=== PATIENT | female | born 1945 | race Caucasian/White ===

== ENCOUNTER 2017-06-26 19:59 | Emergency (ER) | payer MEDICAID, OTHER ==
[~2017-06-26] VITALS: Ht 180.3 cm; Wt 85.7 kg
[2017-06-26] MEDS ORDERED: SODIUM CHLORIDE 0.9% 1,000 ML IVB ONE (20:16)
[2017-06-26] MEDS ORDERED: NALBUPHINE HCL 10 MG/1ml INJECTION IV ONE ×2 (21:00→23:45)
[2017-06-26] MEDS ORDERED: ONDANSETRON HCL 4 MG/2 ML VIAL IV ONE (21:00)
[2017-06-26 21:18] LABS: Basophils # (auto) 0.1 uL; Basophils % (auto) 0.6 % (0.0-2.0); Eosinophils # (auto) 1.1 uL; Eosinophils % (auto) 6.8 % (0.0-7.0); Hematocrit 38.8 % (36.0-46.0); Hemoglobin 12.8 g/dL (12.2-16.2); Lymphocytes # (auto) 1.3 uL; Mean Corpuscular Hemoglobin 29.3 pg (28.0-32.0); Mean Corpuscular Hgb Conc. 32.9 g/dL (32.0-36.0); Monocytes # (auto) 1.4 uL; Monocytes % (auto) 8.9 % (0.0-12.0); Neutrophils # (auto) 12.1 uL; Neutrophils % (auto) 75.7 % (37.0-80.0); Platelet Count (auto) 314 10^3/uL (140-450); Red Blood Cells 4.36 10^6/uL (4.0-5.20); Red Cell Distribution Width 14.3 % (11.8-14.3); White Blood Cell 15.9 10^3/uL (4.4-10.8)
[2017-06-26 21:30] LABS: INR 0.99 (0.9-1.15); Partial Thromboplastin Time 24.5 sec (22.64-33.71); Prothrombin Time 10.8 sec (9.37-12.3)
[2017-06-26 21:35] LABS: Potassium 3.8 mmol/L (3.5-5.1)
[2017-06-26 21:36] LABS: BUN/Creatinine Ratio 16.1
[2017-06-26 21:37] LABS: Albumin 3.4 g/dL (3.4-5.0); Bilirubin, Total 0.5 mg/dL (0.2-1.0); Calcium 9.3 mg/dL (8.5-10.1); Total Protein 8.3 g/dL (6.4-8.2)
[2017-06-27] MEDS ORDERED: NALBUPHINE HCL 10 MG/1ml INJECTION IV ONE ×2 (03:15→04:30)
[2017-06-27] MEDS ORDERED: ONDANSETRON HCL 4 MG/2 ML VIAL IV ONE (03:15)
[2017-06-27 05:07] VITALS: BP 126/85
[2017-06-27 05:44] LABS: Urine Bacteria NONE SEEN /hpf (None Seen); Urine Blood Negative /uL (Negative); Urine Hyaline Cast FEW /lpf (0 - 2); Urine Mucus FEW (None Seen); Urine Specific Gravity 1.018 (1.001-1.035); Urine WBC 2 /hpf (0 - 5)
== END 2017-06-27 05:26 | disposition home or self-care (01) ==
LOC: EDBD 19:59 → ER 19:59
DX: S72.001A Fracture of unspecified part of neck of right femur, initial encounter for closed fracture (principal); I11.0 Hypertensive heart disease with heart failure; I50.9 Heart failure, unspecified; E11.9 Type 2 diabetes mellitus without complications; J44.9 Chronic obstructive pulmonary disease, unspecified; I25.2 Old myocardial infarction; Z88.1 Allergy status to other antibiotic agents; W01.0XXA Fall on same level from slipping, tripping and stumbling without subsequent striking against object, initial encounter; Y93.89 Activity, other specified; Y92.89 Other specified places as the place of occurrence of the external cause; Y99.8 Other external cause status
CPT/HCPCS: 36415; 73502; 73700; 80053; 81001; 85025; 85610; 85730; 93005; 94761; 96361; 96374; 96375; 96376; 99285; J2300; J2405; J7030

== ENCOUNTER 2017-08-09 01:38 | Emergency (ER) | payer OTHER ==
[~2017-08-09] VITALS: Ht 175.3 cm; Wt 72.6 kg
[2017-08-09] MEDS ORDERED: methylPREDNISolone SOD SUCC 125 MG/2 ML VL IV ONE (02:00)
[2017-08-09] MEDS ORDERED: IPRATROPIUM BROM 0.5 MG/2.5ML INH SOL NEB ONE (02:00)
[2017-08-09] MEDS ORDERED: ALBUTEROL SULF 2.5 MG/0.5ML(0.5%) NEB SOLN NEB ONE (02:00)
[2017-08-09 02:20] LABS: Basophils # (auto) 0.2 uL; Basophils % (auto) 1.2 % (0.0-2.0); Eosinophils # (auto) 0.2 uL; Eosinophils % (auto) 1.8 % (0.0-7.0); Hematocrit 31.6 % (36.0-46.0); Lymphocytes # (auto) 1.4 uL; Lymphocytes % (auto) 9.9 % (10.0-50.0); Mean Corpuscular Hemoglobin 27.4 pg (28.0-32.0); Mean Corpuscular Hgb Conc. 31.7 g/dL (32.0-36.0); Mean Corpuscular Volume 86.6 fL (80.0-100.0); Monocytes # (auto) 1.4 uL; Monocytes % (auto) 10.5 % (0.0-12.0); Neutrophils # (auto) 10.5 uL; Neutrophils % (auto) 76.6 % (37.0-80.0); Platelet Count (auto) 345 10^3/uL (140-450); Red Blood Cells 3.65 10^6/uL (4.0-5.20); Red Cell Distribution Width 16.2 % (11.8-14.3); White Blood Cell 13.7 10^3/uL (4.4-10.8)
[2017-08-09 02:29] LABS: INR 1.01 (0.9-1.15); Prothrombin Time 10.8 sec (9.27-12.13)
[2017-08-09 02:32] LABS: Alanine Aminotransferase 22 U/L (13-56); Anion Gap 15 (5-15); Aspartate Aminotransferase 40 U/L (15-37); BUN/Creatinine Ratio 18.4; Blood Urea Nitrogen 27 mg/dL (7-18); Calcium 9.6 mg/dL (8.5-10.1); Carbon Dioxide 23 mmol/L (21-32); Chloride 96 mmol/L (98-107); GFR African American 45 mL/min; GFR Non-African American 37 mL/min; Glucose 214 mg/dL (74-106); Potassium 4.6 mmol/L (3.5-5.1); Sodium 134 mmol/L (136-145)
[2017-08-09 02:33] LABS: Albumin 2.5 g/dL (3.4-5.0); Magnesium 1.9 mg/dL (1.6-2.6)
[2017-08-09 02:37] LABS: Alkaline Phosphatase 217 U/L (45-117); Bilirubin, Total 0.5 mg/dL (0.2-1.0); Total Protein 7.6 g/dL (6.4-8.2)
[2017-08-09] MEDS ORDERED: LORazepam 0.5 MG TAB PO ONE (04:30)
[2017-08-09] MEDS ORDERED: SODIUM CHLORIDE 0.9% 1,000 ML IV ONE (05:45)
[2017-08-09 09:16] VITALS: BP 118/69
== END 2017-08-09 09:27 | disposition short-term general hospital (02) ==
LOC: ER 01:38 → EDUNIT# 01:38 → EDBD 01:38 → ER 09:27
DX: J44.1 Chronic obstructive pulmonary disease with (acute) exacerbation (principal); R06.89 Other abnormalities of breathing; R79.1 Abnormal coagulation profile; N28.9 Disorder of kidney and ureter, unspecified; I11.0 Hypertensive heart disease with heart failure; I50.9 Heart failure, unspecified; E11.9 Type 2 diabetes mellitus without complications; I25.2 Old myocardial infarction
CPT/HCPCS: 36415; 36600; 71045; 80053; 82805; 82962; 83735; 83880; 84484; 85025; 85379; 85610; 85730; 93005; 94640; 94660; 96374; 99285; A6250; J2930